=== PATIENT | female | born 1940 | race Caucasian/White ===

== ENCOUNTER 2019-05-31 16:55 | Outpatient (CLI) | payer MEDICARE, MEDICAID ==
[~2019-05-31 16:55] MED LIST: ALEN70TA6 PO; BENZ1TAB61 PO; CALC0.25 PO; CARB200T13 PO; CLON-364 PO; DIVA125T31 PO; ESTR0.6246 PO; FOLI-17 PO; ILOP8TAB2 PO; LEVO25TA4 PO; MEMA28CA5 PO; METH2.5T PO; POLY1DRO OP; PRAM1TAB PO
== END 2019-05-31 23:59 | disposition home or self-care (01) ==
LOC: RAD 16:55 → MERGE 16:55 → RAD 23:59
PROVIDERS: ATTEND Nurse Practitioner
DX: S09.90XA Unspecified injury of head, initial encounter (principal); W19.XXXA Unspecified fall, initial encounter; Y93.89 Activity, other specified; Y92.89 Other specified places as the place of occurrence of the external cause; Y99.8 Other external cause status
CPT/HCPCS: 70450